=== PATIENT | female | born 1995 | race Two or more races ===

== ENCOUNTER 2018-02-19 16:12 | Emergency (ER) | payer OTHER, MEDICAID ==
[~2018-02-19] VITALS: Ht 175.3 cm; Wt 89.8 kg
[~2018-02-19 16:12] MED LIST: CALC0.5C9 PO; CALC200T3 PO; ERGO500017 PO; HYDR-3240 PO; LEVO125T PO; MAGN400T26 PO; MAGN71.5 PO; METH10TA6 PO; PANT40TA5 PO; POTA1SOL4 PO; PROP10TA PO; SUCR1ORA11 PO
[2018-02-19 16:27] VITALS: BP 107/70
[2018-02-19] MEDS ORDERED: ACETAMINOPHEN 325 MG TABLET PO ONE (17:00)
[2018-02-19] MEDS ORDERED: ACETAMINOPHEN 325 MG TABLET ONE (17:26)
== END 2018-02-19 17:33 | disposition home or self-care (01) ==
LOC: ED 17:15
DX: O26.892 Other specified pregnancy related conditions, second trimester (principal); Z3A.20 20 weeks gestation of pregnancy; J02.8 Acute pharyngitis due to other specified organisms; B34.9 Viral infection, unspecified; E03.9 Hypothyroidism, unspecified; Z88.8 Allergy status to other drugs, medicaments and biological substances; Z88.1 Allergy status to other antibiotic agents; Z88.0 Allergy status to penicillin
CPT/HCPCS: 87081; 87880; 99284

== ENCOUNTER 2018-12-25 08:57 | Outpatient (CLI) | payer OTHER, MEDICAID ==
[~2018-12-25 08:57] MED LIST changes: +PREN1TAB60 PO; -PROP10TA PO; +PROP10TA16 PO
[2018-12-25] MEDS ORDERED: CALC0.5C9 PO (09:40)
[2018-12-25] MEDS ORDERED: TUMS (09:40)
[2018-12-25] MEDS ORDERED: LEVO300T4 PO (09:40)
[2018-12-25] MEDS ORDERED: LEVO1.5T10 PO (09:48)
[2018-12-25] MEDS ORDERED: CALC200T3 PO (09:48)
== END 2018-12-25 23:59 | disposition home or self-care (01) ==
LOC: STAR 08:57
PROVIDERS: ATTEND Obstetrics & Gynecology Female Pelvic Medicine and Reconstructive Surgery
DX: Z02.9 Encounter for administrative examinations, unspecified (principal)

== ENCOUNTER 2019-01-01 12:45 | Day surgery (SDC) | payer OTHER, MEDICAID ==
[~2019-01-01] VITALS: Ht 175.3 cm; Wt 104.3 kg
[~2019-01-01 12:45] MED LIST changes: +BUPIVACAINE/PF 0.25% ONE; +CEFOTETAN 2 GM ONE; +GLYCOPYRROLATE 0.2MG/1ML, 5ML ONE; +LEVO1.5T10 PO; +LEVO300T4 PO; +TUMS
[2019-01-01] MEDS ORDERED: LACTATED RINGERS 1,000 ML IV SCH (13:16)
[2019-01-01] MEDS ORDERED: SCOPOLAMINE PATCH, 1.5MG PATCH.TD72 TD ONE (13:30)
[2019-01-01] MEDS ORDERED: ACETAMINOPHEN 500 MG TABLET PO ONE (13:30)
[2019-01-01] MEDS ORDERED: GABAPENTIN 300 MG CAPSULE PO ONE (13:30)
[2019-01-01 13:50] VITALS: BP 110/72
[2019-01-01] MEDS ORDERED: MIDAZOLAM 1 MG/ML, 2ML ONE ×2 (14:29→15:46)
[2019-01-01] MEDS ORDERED: FENTANYL PF 250 MCG/5ML ONE (14:30)
[2019-01-01] MEDS ORDERED: NEOSTIGMINE 1 MG/ML, 10ML ONE (14:32)
[2019-01-01] MEDS ORDERED: DEXAMETHASONE 4 MG/ML, 1ML ONE ×2 (14:50)
[2019-01-01] MEDS ORDERED: ONDANSETRON 2MG/ML, 2ML ONE ×2 (14:50)
[2019-01-01] MEDS ORDERED: PROPOFOL 10 MG/ML, 20ML ONE (14:52)
[2019-01-01] MEDS ORDERED: LIDOCAINE-MPF 2% ,5ML ONE (14:52)
[2019-01-01] MEDS ORDERED: ROCURONIUM 10MG/ML,5ML ONE (14:52)
[2019-01-01] MEDS ORDERED: hydrALAzine 20 MG/ML, 1ML IV PRN (15:30)
[2019-01-01] MEDS ORDERED: HALOPERIDOL 5 MG/ML IV PRN (15:30)
[2019-01-01] MEDS ORDERED: OXYcodone 5 MG/5 ML ORAL.SOL UDC PO PRN (15:30)
[2019-01-01] MEDS ORDERED: FENTANYL PF 100 MCG/2ML IV PRN (15:30)
[2019-01-01] MEDS ORDERED: PROMETHAZINE 25 MG/ML, 1ML IV PRN (15:30)
[2019-01-01] MEDS ORDERED: MEPERIDINE/PF 25MG/0.5ML IVPush PRN (15:30)
[2019-01-01] MEDS ORDERED: HYDROmorphone 2 MG/ML, 1ML IVPush PRN (15:30)
[2019-01-01] MEDS ORDERED: HYDROmorphone 2 MG/ML, 1ML ONE (15:46)
[2019-01-01] MEDS ORDERED: OXYcodone 5 MG/5 ML ORAL.SOL UDC ONE (15:46)
[2019-01-01] MEDS ORDERED: FENTANYL PF 100 MCG/2ML ONE (15:46)
[2019-01-01] MEDS: MIDAZOLAM 1 MG/ML, 2ML IVPush PRN ×2 (15:48→16:00)
[2019-01-01] MEDS ORDERED: PROMETHAZINE 12.5 MG SUPP PR ONE (18:00)
== END 2019-01-01 18:40 | disposition home or self-care (01) ==
LOC: OUT 12:45
PROVIDERS: ATTEND Obstetrics & Gynecology Female Pelvic Medicine and Reconstructive Surgery
DX: N80.3 Endometriosis of pelvic peritoneum (principal); N94.10 Unspecified dyspareunia; E03.9 Hypothyroidism, unspecified; G43.909 Migraine, unspecified, not intractable, without status migrainosus; Z79.890 Hormone replacement therapy; Z88.0 Allergy status to penicillin; Z88.2 Allergy status to sulfonamides; Z88.8 Allergy status to other drugs, medicaments and biological substances
CPT/HCPCS: 58662; 81025; J1100; J2250; J2405; J2704; J2710; J3010; J3490; J7120

== ENCOUNTER 2019-06-14 15:14 | Emergency (ER) | payer OTHER, MEDICAID ==
[~2019-06-14] VITALS: Ht 175.3 cm; Wt 96.0 kg
[~2019-06-14 15:14] MED LIST changes: -BUPIVACAINE/PF 0.25% ONE; -CEFOTETAN 2 GM ONE; -GLYCOPYRROLATE 0.2MG/1ML, 5ML ONE
[2019-06-14 15:16] VITALS: BP 121/74
--- NOTE | 2019-06-14 15:42 | NUR ---
FIRST CONTACT WITH PT. PT STATES "I think I rolled my ankle" left ankle pain. PMH: Shilo. PT'S AOX4. RESPS EVEN AND UNLABORED.
--- NOTE | 2019-06-14 16:20 | NUR ---
Patient given discharge instructions and they have confirmed that they understand the instructions. Patient ambulatory with steady gait.
== END 2019-06-14 16:22 | disposition home or self-care (01) ==
LOC: ED 15:45
DX: S93.492A Sprain of other ligament of left ankle, initial encounter (principal); E03.9 Hypothyroidism, unspecified; Z90.49 Acquired absence of other specified parts of digestive tract; Z88.0 Allergy status to penicillin; Z88.2 Allergy status to sulfonamides; X58.XXXA Exposure to other specified factors, initial encounter; Y93.89 Activity, other specified; Y92.410 Unspecified street and highway as the place of occurrence of the external cause; Y99.8 Other external cause status
CPT/HCPCS: 99283

== ENCOUNTER 2019-08-06 10:54 | Emergency (ER) | payer OTHER, MEDICAID ==
[~2019-08-06] VITALS: Ht 175.3 cm; Wt 100.0 kg
[~2019-08-06 10:54] MED LIST changes: -SUCR1ORA11 PO; +SUCR1ORA14 PO
--- NOTE | 2019-08-06 11:21 | NUR ---
THIS IS A 23 YO F W/ C/O LORD, BLURRED VISION AND LT LEG PAIN AFTER FALLING DOWN THE STAIRS LAST NIGHT. PT STATES SHE HIT HER HEAD ON THE WALL WHILE FALLING. DENIES LOC. NO HX OF LORD. PTS VS STABLE. RESPIRATIONS ARE EVEN AND UNLABORED. NADN. PT IS RESTING ON ON GURNEY AWAITING EVAL BY PROVIDER. CALL LIGHT IN REACH. DENIES FURTHER NEEDS AT THIS TIME.
[2019-08-06 11:49] VITALS: BP 104/65
[2019-08-06] MEDS ORDERED: HYDROcodone/APAP 5/325 TABLET PO ONE (12:00)
[2019-08-06] MEDS ORDERED: HYDROcodone/APAP 5/325 TABLET ONE (12:00)
--- NOTE | 2019-08-06 12:02 | NUR ---
PT MEDICATED PER EMAR. RESTING ON GURNEY AWAITING IMAGING.
--- NOTE | 2019-08-06 12:51 | NUR ---
PHONE CALL TO RAD THAT PT IS READY FOR IMAGING.
--- NOTE | 2019-08-06 13:32 | NUR ---
ALL IMAGING RESULTED. PATIENT IS UP FOR RECHECK.
--- NOTE | 2019-08-06 14:01 | NUR ---
Patient given discharge instructions and they have confirmed that they understand the instructions. Patient ambulatory with steady gait.
== END 2019-08-06 14:02 | disposition home or self-care (01) ==
LOC: ED 13:50
DX: S06.0X0A Concussion without loss of consciousness, initial encounter (principal); S70.02XA Contusion of left hip, initial encounter; S80.02XA Contusion of left knee, initial encounter; E03.9 Hypothyroidism, unspecified; Z90.49 Acquired absence of other specified parts of digestive tract; Z88.0 Allergy status to penicillin; Z88.2 Allergy status to sulfonamides; W10.9XXA Fall (on) (from) unspecified stairs and steps, initial encounter; Y93.89 Activity, other specified; Y92.009 Unspecified place in unspecified non-institutional (private) residence as the place of occurrence of the external cause; Y99.8 Other external cause status
CPT/HCPCS: 70450; 72125; 99284

== ENCOUNTER 2020-03-28 20:03 | Emergency (ER) | payer MEDICAID, OTHER ==
[~2020-03-28] VITALS: Ht 175.3 cm; Wt 118.9 kg
[~2020-03-28 20:03] MED LIST changes: -PANT40TA5 PO; +PANT40TA6 PO
[2020-03-28 20:14] VITALS: BP 129/86
--- NOTE | 2020-03-28 21:31 | NUR ---
md at bedside for assess
--- NOTE | 2020-03-28 21:56 | NUR ---
Patient given discharge instructions and they have confirmed that they understand the instructions. Patient ambulatory with steady gait.
== END 2020-03-28 22:03 | disposition home or self-care (01) ==
LOC: ED 21:30
DX: M79.622 Pain in left upper arm (principal); M25.512 Pain in left shoulder; R20.2 Paresthesia of skin; E03.9 Hypothyroidism, unspecified
CPT/HCPCS: 72050; 99283

== ENCOUNTER 2020-08-11 12:23 | Emergency (ER) | payer MEDICAID ==
[~2020-08-11] VITALS: Ht 175.3 cm; Wt 122.4 kg
[2020-08-11 13:18] LABS: BASOPHILS % (AUTO) 1 % (0-1); EOSINOPHILS % (AUTO) 3 % (1-7); LYMPHOCYTES % (AUTO) 29 % (22-44); MEAN CORPUSCULAR HEMOGLOBIN 31.6 pg (27.0-34.8); MEAN CORPUSCULAR HGB CONC 34.4 g/dL (32.4-35.8); MEAN PLATELET VOLUME 8.1 fL (7.4-10.4); MONOCYTES % (AUTO) 5 % (2-9); NEUTROPHILS % (AUTO) 63 % (42-75); PLATELET COUNT 243 x10^3/uL (130-400); RED BLOOD COUNT 4.44 x10^6/uL (3.82-5.3); RED CELL DISTRIBUTION WIDTH 14.1 % (9.6-15.2)
--- NOTE | 2020-08-11 13:21 | NUR ---
AMBULATORY TO [facility] W/ STEADY GAIT
--- NOTE | 2020-08-11 13:27 | NUR ---
RETURNED TO ED ROOM 25 W/OUT INCIDENT. VOIDED SPECIMEN PROVIDED.
[2020-08-11 13:30] LABS: ALANINE AMINOTRANSFERASE 57 U/L (12-78); ANION GAP 6 mmol/L (5-15); CALCIUM 7.6 mg/dL (8.5-10.1); CHLORIDE 108 mmol/L (98-107); CREATININE 1.13 mg/dL (0.55-1.02)
[2020-08-11] MEDS ORDERED: DEPO-PROVERA (13:31)
[2020-08-11] MEDS ORDERED: OMEP20CA20 PO (13:31)
[2020-08-11] MEDS ORDERED: CALCIUM PO (13:31)
--- NOTE | 2020-08-11 13:31 | NUR ---
A&OX4, RESP EVEN & UNLABORED, SPEECH CLEAR, SKIN WNL. STATES SHE HAD VAG BLEED THIS AM; NONE CURRENTLY. USES DEPO-PROVERA; NEXT DOSE WAS DUE 08/06; NOW SCHEDULED FOR INJECTION ON 08/21/20. REPORTS SOME ABD CRAMPING. AB0
--- NOTE | 2020-08-11 13:33 | NUR ---
PT REQUESTING PAIN MED; ERP WILL BE NOTIFIED.
[2020-08-11 13:35] LABS: ALKALINE PHOSPHATASE 82 U/L (45-117); BILIRUBIN,TOTAL 0.4 mg/dL (0.2-1.0); TOTAL PROTEIN 8.4 g/dL (6.4-8.2)
[2020-08-11] MEDS ORDERED: HYDROcodone/APAP 5/325 TABLET ONE (13:49)
[2020-08-11 13:51] LABS: MD SCAN
[2020-08-11] MEDS ORDERED: HYDROcodone/APAP 5/325 TABLET PO ONE (14:00)
--- NOTE | 2020-08-11 14:03 | NUR ---
RESTING QUIETLY ON GURNEY, USING IPAD. NORCO GIVEN PER EMAR. PT AWAITING U/S. SIDE RAIL UP X1, CALL LIGHT W/IN REACH.
[2020-08-11 14:27] LABS: MICROSCOPIC AUTO
[2020-08-11 15:12] VITALS: BP 102/74
== END 2020-08-11 16:25 | disposition home or self-care (01) ==
LOC: ED 13:41
DX: N93.8 Other specified abnormal uterine and vaginal bleeding (principal); N39.0 Urinary tract infection, site not specified
CPT/HCPCS: 36415; 76830; 80053; 81001; 84703; 85025; 87086; 99284

== ENCOUNTER 2020-10-21 14:38 | Emergency (ER) | payer MEDICAID, OTHER ==
[~2020-10-21] VITALS: Ht 175.3 cm; Wt 129.0 kg
[~2020-10-21 14:38] MED LIST changes: +CALCIUM PO; +DEPO-PROVERA; +HYDR-1067 PO; -HYDR-3240 PO; +OMEP20CA20 PO
--- NOTE | 2020-10-21 15:04 | NUR ---
PT CO R LOW BACK PAIN RADIATING TO L GLUTE/HAMSTRING AFTER "REACHING FOR A KID AT WORK". REPORTS HAVING FELT A PULLING SENSATION. +TINGLING. DENIES NUMBNESS/INCONTINENCE. HX MANJU, ON SYNTHROID. FRIEND AT BEDSIDE REPOR TO TOYIN CLARK
--- NOTE | 2020-10-21 15:08 | NUR ---
pt in bed with no signs or symptoms of acute distress noted respirations even and unlabored. call light within reach.
[2020-10-21] MEDS ORDERED: METHOCARBAMOL 750 MG TABLET ONE (15:26)
[2020-10-21] MEDS ORDERED: KETOROLAC 30 MG/1 ML ONE (15:26)
[2020-10-21] MEDS ORDERED: METHOCARBAMOL 750 MG TABLET PO ONE (15:30)
[2020-10-21] MEDS ORDERED: KETOROLAC 30 MG/1 ML IM ONE (15:30)
--- NOTE | 2020-10-21 16:11 | NUR ---
pt back from imaging, in [facility] with no signs or symptoms of acute dsitress noted respirations even and unlabored
--- NOTE | 2020-10-21 17:06 | NUR ---
provider at bedside to assess. pt in bed with no signs or symptoms of acute distress noted respirations even and unlabored
[2020-10-21 17:43] VITALS: BP 132/80
== END 2020-10-21 17:45 | disposition home or self-care (01) ==
LOC: ED 17:00
DX: S39.012A Strain of muscle, fascia and tendon of lower back, initial encounter (principal); Z88.0 Allergy status to penicillin; Z88.2 Allergy status to sulfonamides; X58.XXXA Exposure to other specified factors, initial encounter; Y93.89 Activity, other specified; Y92.89 Other specified places as the place of occurrence of the external cause; Y99.8 Other external cause status
CPT/HCPCS: 71045; 72110; 96372; 99284; J1885

== ENCOUNTER 2021-04-04 12:53 | Emergency (ER) | payer MEDICAID ==
[~2021-04-04] VITALS: Ht 175.3 cm; Wt 135.4 kg
[~2021-04-04 12:53] MED LIST changes: -HYDR-1067 PO; +HYDR-2214 PO
[2021-04-04 13:17] VITALS: BP 148/101
--- NOTE | 2021-04-04 13:19 | NUR ---
FABRIZIO RN NOTE: PT IN LOBBY AFTER TRIAGE ED AT [facility], PT REFUSING WHEELCHAIR.
--- NOTE | 2021-04-04 15:50 | NUR ---
PT PULLED INTO TRIAGE [address] [facility] BY [address]. BERTRAND TO DC. PT HAS DEEP WRAP APPLIED TO R ANKLE BY MINE LABORER. PT TOLERATED WELL. CMS REMAINS INTACT. PT GIVEN DC INSTRUCTIONS, AMBULATORY TO CHECKOUT C STEADY GAIT.
== END 2021-04-04 15:53 | disposition home or self-care (01) ==
LOC: ED 15:30
DX: S93.491A Sprain of other ligament of right ankle, initial encounter (principal); M25.561 Pain in right knee; W18.30XA Fall on same level, unspecified, initial encounter; Y93.89 Activity, other specified; Y92.89 Other specified places as the place of occurrence of the external cause; Y99.8 Other external cause status
CPT/HCPCS: 99284